=== PATIENT | female | born 1950 | race Caucasian/White ===

== ENCOUNTER → 2018-08-15 | Outpatient (CLI) | payer OTHER ==
[~2018-08-15] MED LIST: ASPIRIN81 M2 PO; CIPROFLOXACIN500 M1 PO; CO Q-10400 MG PO; FISH OIL + VIT1 EACH PO; FORTAMET500 MG PO; GLYBURIDE 5 MG T5 MG PO; LIORESAL 10 MG10 MG PO; MOBIC7.5 M1 PO; PRINIVIL10 MG PO; TRAMADOL 50 MG50 MG PO; ZOCOR 10 MG TAB10 MG PO; ZYRTEC10 MG PO
== END ==
LOC: M.RAD 09:19
DX: Z12.31 Encounter for screening mammogram for malignant neoplasm of breast (principal); I10 Essential (primary) hypertension; E11.9 Type 2 diabetes mellitus without complications; E78.00 Pure hypercholesterolemia, unspecified; M19.90 Unspecified osteoarthritis, unspecified site